=== PATIENT | male | born 1935 | race African-American/Black ===

== ENCOUNTER 2023-09-08 13:03 | Outpatient (CLI) | payer MEDICARE, OTHER, SELFPAY ==
--- NOTE | ~2023-09-08 | PE_ITS ---
EXAMINATION: PET_PETPSMAST_PT DATE: 09/08/2023 16:00 INDICATION: Prostate cancer TECHNIQUE: 9.025 mCi of pipflufolastat F-18 (18-F-DCFPyL) was administered i.v. Low dose computed to mography (CT) images were acquired from the base of the brain to the base of the brain to the proxima l thighs for attenuation correction and anatomic localization. Positron emission tomography (PET) tommy ges were acquired in the same distribution beginning 97 minutes after injection. Images including fus ed PET/CT images were reconstructed in axial, coronal, and sagittal planes. Automated exposure contro l technique was employed. The dose-length product was 1539.60mGy-cm. COMPARISON: None FINDINGS: Head/neck: Typical pattern of symmetric physiologic increased activity in the lacrimal, parotid and submandibula r glands as well as along the mucosa of the nasal and oral cavities, the jane-, naso- and hypopharynx, the glottis and esophagus. There is also a typical pattern of symmetric tiny foci of mild likely phy siologic neural ganglia uptake at a few bilateral cervical neural foramina. No pathologically enlarge d cervical lymphadenopathy or suspicious foci of increased uptake in the visualized head or neck. Chest: There is some scattered respiratory motion the lungs. No suspicious pulmonary nodules, pneumonia, pul monary edema or other pulmonary infiltrates. No pleural effusion. Heart size is normal. Atherosclerot ic coronary artery calcification is an aortic valve calcification. Thoracic aorta is normal in calibe r. Calcified mediastinal lymph nodes consistent with old granulomatous disease. No pathologically enl arged or PSMA avid thoracic lymphadenopathy. Abdomen/pelvis/proximal thighs: Physiologic renal accumulation and excretion of activity in the kidneys, bladder and along portions o f ureters. Photopenic defects associated with a 5.0 cm and 4.3 cm left renal cysts. Mild prostatomega ly measuring 4.1 x 3.1 cm. There is prominent PSMA activity change from left to right across the post erior peripheral zone of the prostate with maximal SUV of 31.2 consistent with primary prostate cance r. There are a few PSMA avid lymph nodes in the pelvis consistent with metastatic disease. On the rig ht these include a 2.3 x 1.4 cm lymph node at the junction of the obturator and external iliac chains with maximal SUV of 74.2, 4 mm right obturator lymph node with maximal SUV of 20.7, 8 mm right inter nal iliac chain lymph node with maximal SUV of 62.1 and a 6 mm lymph node at the junction of the righ t internal and external iliac chains with maximal SUV of 12.0. There is a single 1.5 x 1.3 cm left ob turator lymph node with maximal SUV of 106. Normal degree and slightly heterogenous pattern of increased uptake throughout the liver and spleen w ithout radiologic correlate or dominant PSMA avid lesion. The gallbladder, pancreas and bilateral adr enal glands are normal. Moderate uptake scattered throughout the bowels with typical duodenal and pro ximal jejunal predominance and without radiologic correlate, also likely physiologic. Prominent diver ticulosis with somewhat atypical proximal predominance and without adjacent from trace stranding to s uggest diverticulitis. Normal appendix. Small fat-containing umbilical hernia. No other abnormal foci of increased uptake or pathologically enlarged lymphadenopathy in the abdomen, pelvis or proximal th ighs. Musculoskeletal: Small focus of uptake at the right forearm likely extravasation at the site of injection. There are b ridging osteophytes at multiple levels consistent with diffuse idiopathic skeletal hyperostosis (DISH ). No suspicious lytic, blastic or PSMA avid bone lesions identified. IMPRESSION: 1. Prominent the SMA activity extending from left to right across the posterior peripheral zone of th e prostate consistent with primary prostate cancer. 2. Several normal-sized to mildly enlarged pelvic lymph nodes wit
== END 2023-09-08 13:04 | disposition home or self-care (01) ==
PROVIDERS: Visit Provider Urology
DX: C61 Malignant neoplasm of prostate (principal); R59.0 Localized enlarged lymph nodes
CPT/HCPCS: 78815; A9595

== ENCOUNTER 2023-09-26 12:05 | Outpatient (CLI) | payer MEDICARE, OTHER, SELFPAY ==
--- NOTE | ~2023-09-26 | DEXA_ITS ---
Bone Density Report Name: YOLANDA MADDEN Age: 88 Sex: Male Ethnicity: White Date of : 1935 Indication: screening for osteoporosis; history of glucocorticoids; cancer; Referring Provider: ROBERTO PONCE Study: Bone densitometry was performed. Exam Date: September 26, 2023 Accession number: [id number] Bone Density: Region BMD T-score Z-score Classification AP Spine(L1, L2, L3) 1.177 1.0 2.3 Normal Femoral Neck (Left) 0.808 -0.9 0.8 Normal Total Hip (Left) 0.989 -0.3 1.0 Normal Femoral Neck (Right) 0.734 -1.4 0.3 Osteopenia Total Hip (Right) 0.979 -0.4 0.9 Normal Femoral Neck Mean 0.771 -1.2 0.5 Osteopenia Total Hip Mean 0.984 -0.3 0.9 Normal World Health Organization criteria for BMD impression classify patients as: Normal (T-score at or above -1.0), Osteopenia (T-score between -1.0 and -2.5), or Osteoporosis (T-score at or below -2.5). 10-year Fracture Risk(1): Major Osteoporotic Fracture 7.9% Hip Fracture 3.3% Reported Risk Factors: [place] (), Neck BMD=0.734, BMI=37.8, glucocorticoids (1) FRAX(R) Version 3.08. Fracture probability calculated for an untreated patient. Fracture probability may be lower if the patient has received treatment. Clinical Information Provided by Patient: Has taken Glucocorticoids Has used the following medications: Vitamin D, Calcium Has the following medical conditions: Cancer Patient maximum height was 66 Drinks caffeinated beverages Impression: The patient has low bone mass, based on the Right Femoral Neck T-score. The patient has risk factors, including: history of glucocorticoid therapy. Discussion: BONE DENSITY IS LOW AT ONE OR MORE SKELETAL SITES. This patient's lowest T-score is low at one or more skeletal sites. It meets the World Health Organization's (WHO) criteria for ?low bone mass? (T-score between -1.0 and -2.5). The patient's 10-year risk of fracture as calculated by FRAX is less than the threshold where pharmacological therapy is recommended by the National Osteoporosis Foundation (NOF). However, all treatment decisions require clinical judgment and consideration of individual patient factors, including patient preferences, comorbidities, previous drug use, risk factors not captured in the FRAX model (e.g., frailty, falls, vitamin D deficiency, increased bone turnover, interval significant decline in bone density) and possible under or overestimation of fracture risk by FRAX. The patient should follow a healthful lifestyle (good nutrition with adequate calcium and vitamin D, and appropriate weight-bearing exercise). Follow-Up: Consider repeating this study in 2 to 3 years to reassess this patient's status, or sooner if there is some new clinical indication. Reported by: Dr. Reji Fuller on
== END 2023-09-26 12:06 | disposition home or self-care (01) ==
LOC: CHSIMG 12:08
PROVIDERS: PCP Internal Medicine; Visit Provider Urology
DX: M81.0 Age-related osteoporosis without current pathological fracture (principal); M85.89 Other specified disorders of bone density and structure, multiple sites
CPT/HCPCS: 77080